=== PATIENT | female | born 2000 ===

== ENCOUNTER 2020-07-02 17:11 | Inpatient (IN) | payer BC ==
[2020-07-02] MEDS ORDERED: Sodium Chloride 0.9% 2.5 ML Syringe FLUSH PRN (17:45)
[2020-07-02] MEDS ORDERED: Carboprost Tromethamine 250 MCG/1 ML Amp IM PRN (17:45)
[2020-07-02] MEDS ORDERED: Tranexamic Acid 1,000 MG in Sodium Chloride 0.9% 100 ML IV PRN (17:45)
[2020-07-02] MEDS ORDERED: Ondansetron 4 MG/2 ML SDV IVPUSH PRN (17:45)
[2020-07-02] MEDS ORDERED: Sodium Chloride 0.9% 10 ML SDV IV PRN (17:45)
[2020-07-02] MEDS ORDERED: Sodium Chloride 0.9% 10 ML Syringe FLUSH PRN (17:45)
[2020-07-02] MEDS ORDERED: Misoprostol 200 MCG Tab PO PRN (17:45)
[2020-07-02] MEDS ORDERED: Oxytocin/0.9 % Sodium Chloride 30 UNIT/500 ML BAG IV SCH ×2 (17:45)
[2020-07-02] MEDS ORDERED: Lidocaine 1% 50 ML MDV INJECT PRN (17:45)
[2020-07-02] MEDS ORDERED: Misoprostol 25 MCG (1/4 of 100 MCG) Tab VAG PRN (17:45)
[2020-07-02] MEDS ORDERED: Methylergonovine 0.2 MG/1 ML Amp IM PRN (17:45)
[2020-07-02] MEDS ORDERED: Nalbuphine 10 MG/1 ML Vial IVPUSH PRN (17:45)
[2020-07-02] MEDS ORDERED: Terbutaline 1 MG/ML SDV SUBCUT PRN (17:45)
[2020-07-02] MEDS ORDERED: Water For Irrigation,Sterile 1,000 ML Container IRR PRN (17:45)
[2020-07-02] MEDS: Lactated Ringers 1,000 ML IV SCH (18:15)
[2020-07-02] MEDS ORDERED: Ampicillin 2 GM in Sodium Chloride 0.9% 100 ML IV ONE (18:30)
[2020-07-02] MEDS ORDERED: Ampicillin 2 GM Vial ONE (20:13)
[2020-07-02] MEDS: Misoprostol 25 MCG (1/4 of 100 MCG) Tab VAG PRN (20:25)
[2020-07-03] MEDS: Lactated Ringers 1,000 ML IV SCH ×3 (01:07→10:21)
[2020-07-03] MEDS: Ampicillin 1 GM in Sodium Chloride 0.9% 50 ML IV SCH ×4 (01:07→13:26)
[2020-07-03] MEDS: Misoprostol 25 MCG (1/4 of 100 MCG) Tab VAG PRN (01:48)
[2020-07-03] MEDS: Butorphanol 1 MG/ML SDV IVPUSH PRN ×2 (08:53→09:59)
[2020-07-03] MEDS ORDERED: fentaNYL 100 MCG/2 ML SDV ONE (09:55)
[2020-07-03] MEDS ORDERED: Ropivacaine HCl/PF 100 ML ONE (09:55)
--- NOTE | 2020-07-03 10:14 | PCM.PREANE ---
Preanesthetic Assessment - Anesthesia/Transfusion/Family Hx Anesthesia History: No Prior Anesthesia Family History of Anesthesia Reaction: No Transfusion History: No Prior Transfusion(s) - Physical Assessment NPO Status Date: 07/03/20 NPO Status Time: 05:00 Height: 1.73 m Weight: 83.461 kg ASA Class: 2 - Lab Values: Laboratory Last Values WBC 13.90 K/uL (4.0-11.0) H 07/02/20 18:10 RBC 3.19 M/uL (4.30-5.90) L 07/02/20 18:10 Hgb 9.7 g/dL (12.0-16.0) L 07/02/20 18:10 Hct 28.8 % (36.0-46.0) L 07/02/20 18:10 MCV 90.3 fL (80.0-98.0) 07/02/20 18:10 MCH 30.4 pg (27.0-32.0) 07/02/20 18:10 MCHC 33.7 g/dL (31.0-37.0) 07/02/20 18:10 RDW Std Deviation 46.5 fl (28.0-62.0) 07/02/20 18:10 RDW Coeff of Cathi 14 % (11.0-15.0) 07/02/20 18:10 Plt Count 278 K/uL (150-400) 07/02/20 18:10 MPV 10.60 fL (7.40-12.00) 07/02/20 18:10 Nucleated RBC % 0.0 /100WBC 07/02/20 18:10 Nucleated RBCs # 0 K/uL 07/02/20 18:10 Blood Type O POSITIVE 07/02/20 18:10 Antibody Screen NEGATIVE 07/02/20 18:10 - Allergies Allergies/Adverse Reactions: Allergies Allergy/AdvReac Type Severity Reaction Status Date / Time hydrocodone Allergy Nausea Verified 07/02/20 19:13 - Acknowledgements Anesthesia Type Planned: Epidural Pt an Appropriate Candidate for the Planned Anesthesia: Yes Alternatives and Risks of Anesthesia Discussed w Pt/Guardian: Yes Pt/Guardian Understands and Agrees with Anesthesia Plan: Yes PreAnesthesia Questionnaire BASE MANAGER History: Reports: Spontaneous Hematologic History: Reports: Anemia - Infectious Disease History Infectious Disease History: Reports: Shingles - Past Surgical History Dermatological Surgical History: Reports: None - SUBSTANCE USE Tobacco Use Status *Q: Never Tobacco User Second Hand Smoke Exposure: No Recreational Drug Use History: No - HOME MEDS Home Medications: Home Meds Calcium Carbonate [Tums] 500 mg PO ASDIRECTED PRN 07/02/20 [History] Pnv No.95/Ferrous Fum/Folic AC [ Caplet] 1 each PO DAILY 07/02/20 [History] - CURRENT (IN HOUSE) MEDS Current Meds: Current Medications Butorphanol Tartrate (Butorphanol 1 Mg/Ml Sdv) 1 mg IVPUSH Q1H PRN PRN Reason: Pain Last Admin: 07/03/20 08:53 Dose: 1 mg Documented by: Carboprost Tromethamine (Carboprost Tromethamine 250 Mcg/1 Ml Amp) 250 mcg IM ASDIRECTED PRN PRN Reason: Post Hemorrhage Oxytocin/Sodium Chloride (Oxytocin 30 Unit/500 Ml-Ns) 30 unit in 500 mls @ 999 mls/hr IV TITRATE [facility] Tranexamic Acid 1,000 mg/ (Sodium Chloride) 110 mls @ 660 mls/hr IV ONETIME PRN PRN Reason: Bleeding Oxytocin/Sodium Chloride (Oxytocin 30 Unit/500 Ml-Ns) 30 unit in 500 mls @ 2 mls/hr IV TITRATE [facility]; Protocol Last Titration: 07/03/20 09:10 Dose: 4 munits/min, 4 mls/hr Documented by: Ampicillin Sodium 1 gm/ Sodium (Chloride) 50 mls @ 100 mls/hr IV Q4H PRASANTH Last Admin: 07/03/20 09:33 Dose: 100 mls/hr Documented by: Lactated Ringer's (Ringers, Lactated) 1,000 mls @ 150 mls/hr IV ASDIRECTED PRASANTH Last Admin: 07/03/20 07:16 Dose: 150 mls/hr Documented by: Lidocaine HCl (Lidocaine 1% 50 Ml Mdv) 50 ml INJECT ONETIME PRN PRN Reason: Laceration repair Methylergonovine Maleate (Methylergonovine 0.2 Mg/1 Ml Amp) 0.2 mg IM ASDIRECTED PRN PRN Reason: Post Hemorrhage Misoprostol (Misoprostol 200 Mcg Tab) 200 mcg PO ONETIME PRN PRN Reason: Post Hemorrhage Misoprostol (Misoprostol 25 Mcg (1/4 Of 100 Mcg) Tab) 25 mcg VAG ONETIME PRN PRN Reason: Cervical Ripening Misoprostol (Misoprostol 25 Mcg (1/4 Of 100 Mcg) Tab) 25 mcg VAG Q4H PRN PRN Reason: Cervical Ripening Last Admin: 07/03/20 01:48 Dose: 25 mcg Documented by: Nalbuphine HCl (Nalbuphine 10 Mg/1 Ml Vial) 10 mg IVPUSH Q1H PRN PRN Reason: Pain (severe 7-10) Ondansetron HCl (Ondansetron 4 Mg/2 Ml Sdv) 4 mg IVPUSH Q6H PRN PRN Reason: Nausea/Vomiting Sodium Chloride (Sodium Chloride 0.9% 10 Ml Syringe) 10 ml FLUSH ASDIRECTED PRN PRN Reason: Keep Vein Open Sodium Chloride (Sodium Chloride 0.9% 2.5 Ml Syringe) 2.5 ml FLUSH ASDIRECTED PRN PRN Reason: Keep Vein Open Sodium Chloride (Sodium Chloride 0.9% 10 Ml Sdv) 10 ml IV ASDIRECTED PRN PRN Reason: IV Use Sterile Water (Water For Irrigation,Sterile 1,000 Ml Container) 1,000 ml IRR ASDIRECTED PRN PRN Reason: delivery Terbutaline Sulfate (Terbutaline 1 Mg/Ml Sdv) 0.25 mg SUBCUT ASDIRECTED PRN PRN Reason: Tacysystole Discontinued Medications Ampicillin Sodium (Ampicillin 2 Gm Vial) Confirm Administered Dose 2 gm .ROUTE .STK-MED ONE Stop: 07/02/20 20:14 Last Admin: 07/03/20 09:34 Dose: Not Given Documented by: Fentanyl (Fentanyl 100 Mcg/2 Ml Sdv) Confirm Administered Dose 100 mcg .ROUTE .STK-MED ONE Stop: 07/03/20 09:56 Ampicillin Sodium 2 gm/ Sodium (Chloride) 100 mls @ 200 mls/hr IV ONETIME ONE Stop: 07/02/20 18:59 Last Admin: 07/02/20 20:23 Dose: 200 mls/hr Documented by: Ropivacaine (Naropin 0.2%) Confirm Administered Dose 100 mls @ as directed .ROUTE .STK-MED ONE Stop: 07/03/20 09:56
[2020-07-03] MEDS ORDERED: Phenylephrine/Normal Saline 100 MCG/ML 10 ML Syringe IVPUSH PRN (10:18)
[2020-07-03] MEDS ORDERED: ePHEDrine 50 MG/ML SDV IVPUSH PRN (10:18)
--- NOTE | 2020-07-03 10:18 | PCM.PRNOTE ---
- Free Text/Narrative Note: Anes Note Patient requests epidural for L&D. Sitting position, level L3-L4 midline approach. Sterile technique. Chloraprep scrub to lumbar area. Sterile fenestrated drape applied. Epidural space easily achieved single attempt using NATY technique. NATY at 3 cm. Cath threaded 5 cm with ease. Cath secured at skin using sterile clear adhesive dressing. Test 1002 3cc 1.5% lido with epi negative. 1005 Load 10 cc 0.2% ropivicaine with 1 mcg cc fentanyl in slow divided doses. 1010 Pumps started wtih 90 cc same solution. Rate is 8 cc hr with 6 cc q 20 min prn bolus. Jose well. Time with patient [id number] Aaron Canseco BUSINESS ATTORNEY
[2020-07-03] MEDS ORDERED: Acetaminophen 500 MG Tab PO PRN (14:49)
[2020-07-03] MEDS ORDERED: Benzocaine/Menthol 20%-0.5% Spray 78 GM Cannister TOP PRN (14:49)
[2020-07-03] MEDS ORDERED: Lanolin 100% Cream 7 GM Tube TOP PRN (14:49)
[2020-07-03] MEDS ORDERED: oxyCODONE 5 MG Tab PO PRN (14:49)
[2020-07-03] MEDS ORDERED: Ibuprofen 400 MG Tab PO PRN (14:49)
[2020-07-03] MEDS ORDERED: Bisacodyl 10 MG Supp RECTAL PRN (14:49)
--- NOTE | 2020-07-03 14:58 | PCM.OPNOTE ---
- General Post-Op/Procedure Note Date of Surgery/Procedure: 07/03/20 Operative Procedure(s): /2nd MLL repaired Findings: Viable male APGARs 8, 9 weight 4270 gm. Spontaneous delivery intact placenta with 3V cord Pre Op Diagnosis: 40/3 week IUP. Elective IOL for past due . GBBS positive. Light meconium stained fluid Post-Op Diagnosis: Same Anesthesia Technique: Epidural Primary Surgeon: Marcia Hernández EBL in mLs: 350 Complications: none known Condition: Good Free Text/Narrative:: Dictation [id number]
[2020-07-03] MEDS: Docusate Sodium 100 MG Cap PO PRN (15:41)
[2020-07-03] MEDS: Witch Hazel Medicated Pads 40/Jar TOP PRN (15:41)
[2020-07-03] MEDS: Ibuprofen 800 MG Tab PO PRN (15:42)
--- NOTE | 2020-07-03 16:12 | OR ---
SURGEON: Marcia Hernández M.D. DATE OF PROCEDURE: 07/03/2020 PREOPERATIVE DIAGNOSES: 1. A 40-3/7 week intrauterine . 2. Elective induction of labor for past due . 3. Group B streptococcus positive. 4. Light meconium-stained amniotic fluid. POSTOPERATIVE DIAGNOSES: 1. A 40-3/7 week intrauterine . 2. Elective induction of labor for past due . 3. Group B streptococcus positive. 4. Light meconium-stained amniotic fluid. PROCEDURES: 1. Spontaneous vaginal delivery. 2. Second-degree midline laceration repaired. ANESTHESIA: Epidural. ESTIMATED BLOOD LOSS: 350 mL. COMPLICATIONS: None known. FINDINGS: Viable male. scores of 8 at one minute, 9 at five minutes. Weight of 9 pounds 7 ounces. Spontaneous delivery, intact placenta, and 3-vessel cord. DISPOSITION: Infant to nursery, mom in LDRP. PROCEDURE IN DETAIL: Paramjit is a 20-year-old G1, P0 at 40-3/7 weeks gestation who presented on the evening of 07/02/2020 for scheduled induction of labor due to past due . On initial examination, the cervix is closed, thick, and -3. Therefore, Cytotec was initiated. Category 1 heart tones. The patient progressed nicely through the evening and shingler hours. The following morning, she was found to be 2 cm to 3 cm, 70% effaced, and -2 station. Therefore, she was transitioned to Pitocin induction. The patient was becoming increasingly uncomfortable. Shortly after 8:30 a.m., she had spontaneous rupture of membranes. She had already received 3 doses of ampicillin prophylaxis for group B strep positive status. The patient became increasingly uncomfortable after spontaneous rupture and underwent epidural. She became more comfortable and was found to be approximately 6 cm, 80% effaced, and -2 station. The patient continued to labor and shortly before 1 p.m. was found to be complete, 100% effaced, and +2 station, began pushing efforts shortly after 1 p.m., and in the next hour was able to push to a +3 station. I was called for delivery. Upon my arrival, the patient was placed in modified dorsal lithotomy position, was prepped and draped in the usual aseptic manner. Continued with pushing efforts, pushed adequately, and was able to deliver 's head atraumatically spontaneously, followed by anterior shoulder, posterior shoulder, and remainder of the body without difficulty. The 's oropharynx and nares were bulb suctioned. was handed off to his mother with attending nursery staff at her side. After a delay, cord was clamped x2 and cut. Cord arterial, cord venous, and cord blood sampling obtained. Light pressure was applied while the placenta was delivered spontaneously intact. Vigorous fundal uterine massage was then applied while 30 units of Pitocin was delivered in 500 mL of IV fluid. Upon inspection of cervix, vaginal sidewall, and perineum, there was found to be second-degree midline laceration. This was repaired in the usual fashion using 3-0 Vicryl. Hemostasis appeared evident. Sponge count and instrument count were correct as well as the needle count. Uterus remained firm. Hemostasis evident. The patient tolerated the procedure well. She will remain in LDRP, infant in nursery. SREEDHAR / VIPIN /[id number]
[2020-07-03] MEDS: Acetaminophen 500 MG Tab PO PRN (20:09)
[2020-07-04] MEDS: Ibuprofen 800 MG Tab PO PRN ×3 (02:58→20:51)
--- NOTE | 2020-07-04 07:39 | PCM48HPAN ---
Post Anesthesia Note - EVALUATION WITHIN 48HRS OF ANESTHETIC Vital Signs in Normal Range: Yes Patient Participated in Evaluation: Yes Respiratory Function Stable: Yes Airway Patent: Yes Cardiovascular Function Stable: Yes Hydration Status Stable: Yes Pain Control Satisfactory: Yes Nausea and Vomiting Control Satisfactory: Yes Mental Status Recovered: Yes Vital Signs: Last Vital Signs Temp 98.6 F 07/04/20 03:05 Pulse 85 07/04/20 03:05 Resp 15 07/04/20 03:05 BP 104/66 07/04/20 03:05 Pulse Ox 98 07/04/20 03:05
[2020-07-04] MEDS: Acetaminophen 500 MG Tab PO PRN ×2 (08:23→17:25)
[2020-07-04] MEDS: Docusate Sodium 100 MG Cap PO PRN ×2 (08:31→21:01)
--- NOTE | 2020-07-04 10:01 | PCM.PNPP ---
- General Info Date of Service: 07/04/20 Functional Status: Reports: Pain Controlled, Tolerating Diet, Ambulating, Urinating - Review of Systems General: Reports: Fatigue. Denies: Fever, Weakness Pulmonary: Denies: Shortness of Breath Cardiovascular: Denies: Chest Pain, Palpitations, Lightheadedness Gastrointestinal: Denies: Abdominal Pain, Nausea, Vomiting Genitourinary: Denies: Flank Pain Musculoskeletal: Reports: No Symptoms Skin: Reports: No Symptoms Neurological: Reports: No Symptoms Psychiatric: Reports: No Symptoms - General Info Date of Service: 07/04/20 - Patient Data Vital Signs - Most Recent: Last Vital Signs Temp 36.5 C 07/04/20 08:00 Pulse 78 07/04/20 08:00 Resp 16 07/04/20 08:00 BP 114/78 07/04/20 08:00 Pulse Ox 97 07/04/20 08:00 Weight - Most Recent: 83.461 kg Lab Results - Last 24 Hours: Laboratory Results - last 24 hr 07/03/20 07/04/20 Range/Units 14:25 05:45 Hgb 9.5 L (12.0-16.0) g/dL Hct 28.0 L (36.0-46.0) % Cord ABG pH 7.233 (7.18-7.38) Cord ABG Base Excess -6 (-10--2) Cord VBG pH 7.332 (7.25-7.45) Cord VBG Base Excess -3 (-10--2) Med Orders - Current: Current Medications Acetaminophen (Acetaminophen 500 Mg Tab) 500 mg PO Q4H PRN PRN Reason: Pain Acetaminophen (Acetaminophen 500 Mg Tab) 1,000 mg PO Q4H PRN PRN Reason: Pain Last Admin: 07/04/20 08:23 Dose: 1,000 mg Documented by: Benzocaine/Menthol (Benzocaine/Menthol 20%-0.5% [place] 78 Gm Cannister) 78 gm TOP ASDIRECTED PRN PRN Reason: Perineal Comfort Measure Last Admin: 07/03/20 15:41 Dose: 1 canister Documented by: Bisacodyl (Bisacodyl 10 Mg Supp) 10 mg RECTAL ONETIME PRN PRN Reason: Constipation Carboprost Tromethamine (Carboprost Tromethamine 250 Mcg/1 Ml Amp) 250 mcg IM ASDIRECTED PRN PRN Reason: Post Hemorrhage Docusate Sodium (Docusate Sodium 100 Mg Cap) 100 mg PO BID PRN PRN Reason: Constipation Last Admin: 07/04/20 08:31 Dose: 100 mg Documented by: Emollient Ointment (Lanolin 100% Cream 7 Gm Tube) 0 gm TOP ASDIRECTED PRN PRN Reason: Sore Nipples Ephedrine Sulfate (Ephedrine 50 Mg/Ml Sdv) 10 mg IVPUSH Q5M PRN PRN Reason: Hypotension Oxytocin/Sodium Chloride (Oxytocin 30 Unit/500 Ml-Ns) 30 unit in 500 mls @ 999 mls/hr IV TITRATE [facility]AN[facility] Tranexamic Acid 1,000 mg/ (Sodium Chloride) 110 mls @ 660 mls/hr IV ONETIME PRN PRN Reason: Bleeding Lactated Ringer's (Ringers, Lactated) 1,000 mls @ 150 mls/hr IV ASDIRECTED PRASANTH Last Admin: 07/03/20 10:21 Dose: 150 mls/hr Documented by: Ibuprofen (Ibuprofen 400 Mg Tab) 400 mg PO Q4H PRN PRN Reason: Pain Ibuprofen (Ibuprofen 800 Mg Tab) 800 mg PO Q6H PRN PRN Reason: Pain Last Admin: 07/04/20 02:58 Dose: 800 mg Documented by: Methylergonovine Maleate (Methylergonovine 0.2 Mg/1 Ml Amp) 0.2 mg IM ASDIRECTED PRN PRN Reason: Post Hemorrhage Ondansetron HCl (Ondansetron 4 Mg/2 Ml Sdv) 4 mg IVPUSH Q6H PRN PRN Reason: Nausea/Vomiting Oxycodone HCl (Oxycodone 5 Mg Tab) 5 mg PO Q2H PRN PRN Reason: Pain Phenylephrine HCl (Phenylephrine/Normal Saline 100 Mcg/Ml 10 Ml Syringe) 0.1 mg IVPUSH Q5M PRN PRN Reason: Hypotension Sodium Chloride (Sodium Chloride 0.9% 10 Ml Syringe) 10 ml FLUSH ASDIRECTED PRN PRN Reason: Keep Vein Open Sodium Chloride (Sodium Chloride 0.9% 2.5 Ml Syringe) 2.5 ml FLUSH ASDIRECTED PRN PRN Reason: Keep Vein Open Sodium Chloride (Sodium Chloride 0.9% 10 Ml Sdv) 10 ml IV ASDIRECTED PRN PRN Reason: IV Use Sterile Water (Water For Irrigation,Sterile 1,000 Ml Container) 1,000 ml IRR ASDIRECTED PRN PRN Reason: delivery Witch Kera (Witch Kera Medicated Pads 40/Jar) 1 pad TOP ASDIRECTED PRN PRN Reason: comfort care Last Admin: 07/03/20 15:41 Dose: 1 tub Documented by: Discontinued Medications Ampicillin Sodium (Ampicillin 2 Gm Vial) Confirm Administered Dose 2 gm .ROUTE .STK-MED ONE Stop: 07/02/20 20:14 Last Admin: 07/03/20 09:34 Dose: Not Given Documented by: Butorphanol Tartrate (Butorphanol 1 Mg/Ml Sdv) 1 mg IVPUSH Q1H PRN PRN Reason: Pain Last Admin: 07/03/20 09:59 Dose: 1 mg Documented by: Fentanyl (Fentanyl 100 Mcg/2 Ml Sdv) Confirm Administered Dose 100 mcg .ROUTE .STK-MED ONE Stop: 07/03/20 09:56 Oxytocin/Sodium Chloride (Oxytocin 30 Unit/500 Ml-Ns) 30 unit in 500 mls @ 2 mls/hr IV TITRATE [facility]; Protocol Last Titration: 07/03/20 12:00 Dose: 10 munits/min, 10 mls/hr Documented by: Ampicillin Sodium 2 gm/ Sodium (Chloride) 100 mls @ 200 mls/hr IV ONETIME ONE Stop: 07/02/20 18:59 Last Admin: 07/02/20 20:23 Dose: 200 mls/hr Documented by: Ampicillin Sodium 1 gm/ Sodium (Chloride) 50 mls @ 100 mls/hr IV Q4H [facility] Last Admin: 07/03/20 13:26 Dose: 100 mls/hr Documented by: Ropivacaine (Naropin 0.2%) Confirm Administered Dose 100 mls @ as directed .ROUTE .STK-MED ONE Stop: 07/03/20 09:56 Lidocaine HCl (Lidocaine 1% 50 Ml Mdv) 50 ml INJECT ONETIME PRN PRN Reason: Laceration repair Misoprostol (Misoprostol 200 Mcg Tab) 200 mcg PO ONETIME PRN PRN Reason: Post Hemorrhage Misoprostol (Misoprostol 25 Mcg (1/4 Of 100 Mcg) Tab) 25 mcg VAG ONETIME PRN PRN Reason: Cervical Ripening Misoprostol (Misoprostol 25 Mcg (1/4 Of 100 Mcg) Tab) 25 mcg VAG Q4H PRN PRN Reason: Cervical Ripening Last Admin: 07/03/20 01:48 Dose: 25 mcg Documented by: Nalbuphine HCl (Nalbuphine 10 Mg/1 Ml Vial) 10 mg IVPUSH Q1H PRN PRN Reason: Pain (severe 7-10) Terbutaline Sulfate (Terbutaline 1 Mg/Ml Sdv) 0.25 mg SUBCUT ASDIRECTED PRN PRN Reason: Tacysystole - Interaction Disposition, : Johnson in Room with Family Feeding: Bottle Fed Support Person: - Recovery Exam Fundal Tone: Firm Fundal Level: At Umbilicus Fundal Placement: Left Lochia Amount: Scant Lochia Color: Rubra/Red Perineum Description: Edematous - Exam General: Alert, Oriented Lungs: Normal Respiratory Effort Cardiovascular: Regular Rate, Regular Rhythm GI/Abdominal Exam: Normal Bowel Sounds, Soft Extremities: Non-Tender, Pedal Edema (trace). No: Aysha's Sign Skin: Warm, Dry, Intact Neurological: No New Focal Deficit Psy/Mental Status: Alert, Normal Affect, Normal Mood - Problem List & Annotations (1) Vaginal delivery SNOMED Code(s): 055889456 Code(s): O80 - ENCOUNTER FOR FULL-TERM UNCOMPLICATED DELIVERY Status: Acute Current Visit: Yes - Problem List Review Problem List Initiated/Reviewed/Updated: Yes - My Orders Last 24 Hours: My Active Orders 07/03/20 14:49 Patient Status [ADT] Routine Notify Provider Vital Signs [RC] ASDIRECTED Up ad Mindy [RC] ASDIRECTED Vital Signs [RC] PER UNIT ROUTINE Acetaminophen [Tylenol Extra Strength] 1,000 mg PO Q4H PRN Acetaminophen [Tylenol Extra Strength] 500 mg PO Q4H PRN Benzocaine/Menthol [Dermoplast Pain Relief 20%-0.5% [place]] 78 gm TOP ASDIRECTED PRN Docusate Sodium [Colace] 100 mg PO BID PRN Ibuprofen [Motrin] 400 mg PO Q4H PRN Ibuprofen [Motrin] 800 mg PO Q6H PRN Lanolin [Lansinoh HPA] See Dose Instructions TOP ASDIRECTED PRN bisacodyL [Dulcolax] 10 mg RECTAL ONETIME PRN oxyCODONE 5 mg PO Q2H PRN abdulaziz Kera [Tucks] 1 pad TOP ASDIRECTED PRN Assess Lochia [WOMSER] Per Unit Routine Assess Uterine Involution [WOMSER] Per Unit Routine Ice Therapy [OM.PC] Per Unit Routine Perineal Care [OM.PC] Per Unit Routine Peripheral IV Discontinue [OM.PC] Routine 07/03/20 14:50 Cooling Warming Measures [RC] ASDIRECTED 07/03/20 Dinner Regular Diet [DIET] 07/04/20 09:59 Ready for Discharge [RC] PER UNIT ROUTINE - Assessment Assessment:: PPD 1 status post /2nd MLL repaired - Plan Plan:: Doing well overall. Is anemic, but hemoglobin stable and not symptomatic. Agrees to take iron supplementation along with stool softener. Would like to go homet shamika. Discharge instructions reviewed. Follow up at [facility] 4 weeks or sooner if moving before then--she will call and let us know. Discharge to home today.
[2020-07-04] MEDS: Witch Hazel Medicated Pads 40/Jar TOP PRN (23:41)
[2020-07-05] MEDS: Acetaminophen 500 MG Tab PO PRN (04:35)
[2020-07-05] MEDS: Ibuprofen 800 MG Tab PO PRN (08:14)
[2020-07-05] MEDS: Docusate Sodium 100 MG Cap PO PRN (08:15)
[2020-07-05] MEDS: Witch Hazel Medicated Pads 40/Jar TOP PRN (18:25)
== END 2020-07-05 22:45 | disposition home or self-care (01) | DRG 560 ==
LOC: MW.OB 17:11 → OBSVTOIN 07-03 14:49 → MW.OB 07-03 17:17
PROVIDERS: ADMIT Obstetrics & Gynecology; ATTEND Obstetrics & Gynecology
PROC: 10E0XZZ Delivery of Products of Conception, External Approach (ICD-10-PCS; principal; 2020-07-03)
PROC: 3E0P7VZ Introduction of Hormone into Female Reproductive, Via Natural or Artificial Opening (ICD-10-PCS; 2020-07-03)
PROC: 0KQM0ZZ Repair Perineum Muscle, Open Approach (ICD-10-PCS; 2020-07-03)
PROC: 3E0R3BZ Introduction of Anesthetic Agent into Spinal Canal, Percutaneous Approach (ICD-10-PCS; 2020-07-03)
PROC: 00HU33Z Insertion of Infusion Device into Spinal Canal, Percutaneous Approach (ICD-10-PCS; 2020-07-03)
DX: O48.0 Post-term pregnancy (principal); O99.824 Streptococcus B carrier state complicating childbirth; Z37.0 Single live birth; O77.0 Labor and delivery complicated by meconium in amniotic fluid; O70.1 Second degree perineal laceration during delivery; Z3A.40 40 weeks gestation of pregnancy; Z88.5 Allergy status to narcotic agent
CPT/HCPCS: 01967; 36415; 51702; 59025; 59409; 82803; 85014; 85018; 85027; 86592; 86850; 86900; 86901; A9270-GY; J0290; J0595; J2590; J2795; J3010; J7120